=== PATIENT | female | born 1975 | race Two or more races ===

== ENCOUNTER 2020-02-19 08:00 | Outpatient (CLI) | payer OTHER | END 2020-02-19 15:00 | disposition home or self-care (01) | LOC: LAB 08:00 → EDSTATUS 02-26 10:30 → OB/GYN 02-26 10:30 | PROVIDERS: ATTEND Obstetrics & Gynecology | DX: Z20.828 Contact with and (suspected) exposure to other viral communicable diseases (principal); E55.9 Vitamin D deficiency, unspecified ==

== ENCOUNTER 2020-02-21 07:15 | Inpatient (IN) | payer OTHER ==
[~2020-02-21] VITALS: Ht 175.3 cm; Wt 77.3 kg
[2020-02-21] MEDS ORDERED: PAXIL40 MG PO (13:05)
[2020-02-21] MEDS ORDERED: ATIVAN0.5 M1 PO (13:06)
[2020-02-21] MEDS ORDERED: ADDERALL 30 MG30 MG PO (13:09)
== END 2020-02-27 16:25 | disposition home or self-care (01) | DRG 743 ==
LOC: SURH 02-26 07:00 → O/R 02-26 07:28 → OB/GYN 02-26 07:28
PROVIDERS: ADMIT Obstetrics & Gynecology; ATTEND Obstetrics & Gynecology
PROC: 0UB74ZX Excision of Bilateral Fallopian Tubes, Percutaneous Endoscopic Approach, Diagnostic (ICD-10-PCS; 2020-02-26)
PROC: 0UT9FZZ Resection of Uterus, Via Natural or Artificial Opening With Percutaneous Endoscopic Assistance (ICD-10-PCS; principal; 2020-02-26 07:00)
DX: D25.1 Intramural leiomyoma of uterus (principal); D25.0 Submucous leiomyoma of uterus; D25.2 Subserosal leiomyoma of uterus; N83.8 Other noninflammatory disorders of ovary, fallopian tube and broad ligament; K66.0 Peritoneal adhesions (postprocedural) (postinfection)